=== PATIENT | male | born 1950 | race Hispanic/Latino ===

== ENCOUNTER 2017-03-13 20:39 | Emergency (ER) | payer MEDICARE ==
[2017-03-13] MEDS ORDERED: predniSONE 20 MG TAB PO ONE (20:56)
[2017-03-13] MEDS ORDERED: CETIRIZINE HCL 10 MG TAB PO ONE (20:57)
[2017-03-13] MEDS ORDERED: diphenhydrAMINE HCL 25 MG CAP PO ONE (20:57)
[2017-03-13 20:58] VITALS: TEMP 97.8
--- NOTE | 2017-03-13 21:13 | ED.PDOC ---
History of Present Illness - General Chief Complaint: Allergic Reaction Stated Complaint: itching all over, allergic reaction Time Seen by Provider: 03/13/17 20:56 Source: patient Exam Limitations: no limitations - History of Present Illness Initial Comments: the patient is a 66-year-old male presented to the emergency room secondary to what he believes to be an allergic reaction due to celery intake. the patient started having symptoms of itching around his neck and at the bottoms of his feet. He is not having difficulty breathing and no shortness of breath. No hives are apparent. No obvious rashes apparent. His blood pressure did go up somewhat during the event. No swelling of his lips or his tongue. No altered mental status. No syncope or near syncope. He has had one very significant allergic reaction in the distant past and did not want that to happen again. Timing/Duration: 1-3 hours Severity: mild Improving Factors: nothing Worsening Factors: nothing Associated Symptoms: rash Allergies/Adverse Reactions: Allergies Acetaminophen [From Phenaphen W/Codeine] Allergy (Unverified 05/14/13 19:27) Codeine [From Phenaphen W/Codeine] Allergy (Unverified 05/14/13 19:27) Penicillin G Procaine Allergy (Unverified 05/14/13 19:27) Home Medications: Ambulatory Orders Atorvastatin Calcium [Lipitor] 20 mg PO DAILY 11/19/14 Hydrochlorothiazide 25 mg PO DAILY 11/19/14 Lisinopril 20 mg PO BID 11/19/14 Metoprolol Succinate [Metoprolol Succinate ER] 25 mg PO DAILY 11/19/14 Montelukast [Singulair] 10 mg PO DAILY 11/19/14 Review of Systems - Review of Systems Constitutional: States: no symptoms reported EENTM: States: nose congestion Respiratory: States: no symptoms reported Cardiology: States: no symptoms reported Gastrointestinal/Abdominal: States: no symptoms reported Genitourinary: States: no symptoms reported Musculoskeletal: States: no symptoms reported Skin: States: no symptoms reported, see HPI - ruritus Neurological: States: anxiety Endocrine: States: no symptoms reported All other Systems: No Change from Baseline Past Medical History (General) - Patient Medical History Hx Asthma: Yes Hx Congestive Heart Failure: No Hx Hypertension: Yes Hx Diabetes: No Surgical History: other - Vaccination History Hx Tetanus, Diphtheria Vaccination: No Hx Influenza Vaccination: No Hx Pneumococcal Vaccination: No - Social History Hx Tobacco Use: No Hx Alcohol Use: No Family Medical History - Family History Father Hx Cardiac Disease: Yes Physical Exam - Physical Exam General Appearance: Alert, Comfortable, No apparent distress Eye Exam: bilateral normal Ears, Nose, Throat: hearing grossly normal, normal ENT inspection, normal pharynx Neck: full range of motion, supple Respiratory: lungs clear, normal breath sounds, no respiratory distress, no accessory muscle use Cardiovascular/Chest: normal peripheral pulses, regular rate, rhythm, no edema Peripheral Pulses: radial,right: 2+, radial,left: 2+, dorsalis pedis,right: 2+, dorsalis pedis,left: 2+ Gastrointestinal/Abdominal: non tender, soft - obese Rectal Exam: deferred Back Exam: normal inspection Extremity: normal range of motion, non-tender, normal inspection, no pedal edema , normal capillary refill 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 Reaction at this point appears to be mild. He has been given a dose of prednisone and Zyrtec and Benadryl. The patient has been monitored for reasonable amount of time and the reaction does not appear to be progressing. he can take Zyrtec daily for the next 7 days. ER warnings were given for any significant worsening. He should keep some Benadryl on hand for any future reactions. Departure - Departure Clinical Impression: Food allergy Disposition: Discharge to Home or Self Care Condition: Fair Departure Forms: ED Discharge - Pt. Copy, Patient Portal Self Enrollment Instructions: DI for Food Allergy Diet: regular diet Activity: increase activity as tolerated Referrals: Wisam Middleton MD [Primary Care Provider] - 1-2 Weeks Home Medications: Ambulatory Orders Atorvastatin Calcium [Lipitor] 20 mg PO DAILY 11/19/14 Hydrochlorothiazide 25 mg PO DAILY 11/19/14 Lisinopril 20 mg PO BID 11/19/14 Metoprolol Succinate [Metoprolol Succinate ER] 25 mg PO DAILY 11/19/14 Montelukast [Singulair] 10 mg PO DAILY 11/19/14 Additional Instructions: the patient is a 66-year-old male presenting with what appears to be an allergic reaction to food. Reaction at this point appears to be mild. He has been given a dose of prednisone and Zyrtec and Benadryl. The patient has been monitored for reasonable amount of time and the reaction does not appear to be progressing. he can take Zyrtec daily for the next 7 days. ER warnings were given for any significant worsening. He should keep some Benadryl on hand for any future reactions.
[2017-03-13 22:16] VITALS: BP 136/82; O2SAT 99
== END 2017-03-13 22:17 | disposition home or self-care (01) ==
LOC: ER 20:39
DX: T78.1XXA Other adverse food reactions, not elsewhere classified, initial encounter (principal); I10 Essential (primary) hypertension; X58.XXXA Exposure to other specified factors, initial encounter
CPT/HCPCS: J7512; Q0163

== ENCOUNTER 2018-02-22 10:34 | Emergency (ER) | payer MEDICARE ==
[2018-02-22 10:53] VITALS: TEMP 98.2
[2018-02-22] MEDS ORDERED: predniSONE 20 MG TAB PO ONE (10:54)
--- NOTE | 2018-02-22 11:26 | RAD ---
Six EXAM DESCRIPTION: KUB CLINICAL HISTORY: 67 years Male lower abd pain COMPARISON: None TECHNIQUE: A single supine view of the abdomen is obtained. FINDINGS: There is no evidence of free air. There is mild gaseous distention of small bowel loops in the central abdomen as well as a moderate amount of fecal content in the right colon and gaseous distention of the transverse colon. Small calcifications in the pelvis are most likely phleboliths. If there is a history of renal colic, distal ureteral calculi are also considerations. [] There is no organomegaly. The lung bases show no gross consolidation. [] There are no discernible acute osseous abnormalities or areas of osseous destruction/osteoblastic disease. There are degenerative changes of the spine and scattered enthesopathy. IMPRESSION: Mild ileus most likely. Partial small bowel obstruction in the differential but probably less likely. Follow-up films are recommended. ]Small calcifications in the pelvis are most likely phleboliths. If there is a history of renal colic, distal ureteral calculi are also considerations could be further evaluated with noncontrast CT abdomen and pelvis if clinically indicated. [] Electronically signed by: Silvia Caicedo MD 02/22/2018 11:24 AM [employer]
[2018-02-22 12:07] VITALS: BP 125/82; O2SAT 98
[2018-02-22] MEDS ORDERED: MAGNESIUM HYDROXIDE 30 ML UD PO ONE (12:44)
--- NOTE | 2018-02-22 12:49 | ED.PDOC ---
History of Present Illness - General Chief Complaint: Back Pain or Injury Stated Complaint: back,abdominal pain,groin pain Time Seen by Provider: 02/22/18 10:43 Source: patient Exam Limitations: no limitations - History of Present Illness Initial Comments: The patient is 67-year-old male presenting to emergency room secondary to a worsening of low back pain for last for 5 days after he twisted while doing something at home. Additionally he has been taking an increased amount of his tramadol for his neuropathy and has had some constipation issues with some mild lower abdominal pain associated with it. No fever. No large trauma. He has tenderness to palpation over the L5-S1 joint on the right. Severity: moderate Improving Factors: nothing Worsening Factors: nothing Associated Symptoms: denies symptoms Allergies/Adverse Reactions: Allergies Acetaminophen [From Phenaphen W/Codeine] Allergy (Unverified 05/14/13 19:27) Codeine [From Phenaphen W/Codeine] Allergy (Unverified 05/14/13 19:27) Penicillin G Procaine Allergy (Unverified 05/14/13 19:27) Home Medications: Ambulatory Orders Atorvastatin Calcium [Lipitor] 20 mg PO DAILY 11/19/14 Hydrochlorothiazide 25 mg PO DAILY 11/19/14 Lisinopril 20 mg PO BID 11/19/14 Metoprolol Succinate [Metoprolol Succinate ER] 25 mg PO DAILY 11/19/14 Montelukast [Singulair] 10 mg PO DAILY 11/19/14 Cyclobenzaprine HCl [Flexeril] 10 mg PO TID PRN 02/22/18 Tamsulosin [Flomax] 0.4 mg PO QD 02/22/18 predniSONE [Prednisone] 20 mg PO DAILY #3 tab 02/22/18 traMADol 37.5MG/APAP 325MG [Ultracet] 1 - 2 tab PO PRN 02/22/18 Review of Systems - Review of Systems Constitutional: States: no symptoms reported EENTM: States: no symptoms reported Respiratory: States: no symptoms reported Cardiology: States: no symptoms reported Gastrointestinal/Abdominal: States: abdominal pain, constipation Genitourinary: States: no symptoms reported Musculoskeletal: States: back pain Skin: States: no symptoms reported Neurological: States: no symptoms reported Endocrine: States: no symptoms reported All other Systems: No Change from Baseline Past Medical History (General) - Patient Medical History Hx Stroke: No Hx Asthma: Yes Hx Congestive Heart Failure: No Hx Hypertension: Yes Hx Diabetes: No - Vaccination History Hx Tetanus, Diphtheria Vaccination: No Hx Influenza Vaccination: No Hx Pneumococcal Vaccination: No - Social History Hx Tobacco Use: Yes Hx Alcohol Use: No Family Medical History - Family History Father Family History: Unknown Living Status: Unknown Hx Cardiac Disease: Yes Physical Exam - Physical Exam General Appearance: Alert, Comfortable, No apparent distress Eye Exam: bilateral normal Ears, Nose, Throat: hearing grossly normal, normal ENT inspection Neck: full range of motion, supple Respiratory: lungs clear, normal breath sounds, no respiratory distress, no accessory muscle use Cardiovascular/Chest: normal peripheral pulses, regular rate, rhythm, no edema Peripheral Pulses: radial,left: 2+ Gastrointestinal/Abdominal: non tender - obese. No rebound or peritoneal signs., soft Rectal Exam: deferred Back Exam: other - tenderness to palpation over the right L5-S1 joint. No gross deformity. 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 He'll be placed on prednisone 20 mg daily for the next 3 days. He can continue the Flexeril he is already using. Topical heat in the form of icy hot or Biofreeze or a heat pad may also prove beneficial. He does need to do stretching exercises for the low back. Additionally he does have some significant constipation that is likely causing him some abdominal discomfort. He can continue the laxative that he was given by his primary care doctor. I would also recommend that he start a fiber supplement daily such as Metamucil or FiberCon and if needed MiraLAX daily additionally. He needs to follow back up with his primary care doctor in a few days for reevaluation. Urinalysis was clear. ER warnings were given. - Results/Orders Results/Orders: Laboratory Tests 02/22/18 11:42 Urine Color Yellow Urine Appearance Clear Urine pH 6.0 Ur Specific [place] 1.020 Urine Protein Negative Urine Glucose (UA) Negative Urine Ketones Negative Urine Blood Negative Urine Nitrite Negative Urine Bilirubin Negative Urine Urobilinogen 0.2 Ur Leukocyte Esterase Negative Urine RBC 0 Urine WBC 0 Ur Epithelial Cells 0 Urine Bacteria 0 abdominal x-ray is significant for stones in the kidney and bladder. He does still have significant constipation. There is some mild small bowel distention that could be consistent with a small bowel obstruction however clinically the patient does not have a small bowel obstruction. Departure - Departure Clinical Impression: Constipation Qualifiers: Constipation type: drug induced constipation Qualified Code(s): K59.03 - Drug induced constipation Low back pain Qualifiers: Chronicity: acute Back pain laterality: right Sciatica presence: without sciatica Qualified Code(s): M54.5 - Low back pain Disposition: Discharge to Home or Self Care Condition: Fair Departure Forms: ED Discharge - Pt. Copy, Patient Portal Self Enrollment Diet: regular diet - high-fiber Activity: increase activity as tolerated Referrals: Wisam Middleton MD [Primary Care Provider] - 1-5 Days Prescriptions: predniSONE [Prednisone] 20 mg PO DAILY #3 tab Home Medications: Ambulatory Orders Atorvastatin Calcium [Lipitor] 20 mg PO DAILY 11/19/14 Hydrochlorothiazide 25 mg PO DAILY 11/19/14 Lisinopril 20 mg PO BID 11/19/14 Metoprolol Succinate [Metoprolol Succinate ER] 25 mg PO DAILY 11/19/14 Montelukast [Singulair] 10 mg PO DAILY 11/19/14 Cyclobenzaprine HCl [Flexeril] 10 mg PO TID PRN 02/22/18 Tamsulosin [Flomax] 0.4 mg PO QD 02/22/18 predniSONE [Prednisone] 20 mg PO DAILY #3 tab 02/22/18 traMADol 37.5MG/APAP 325MG [Ultracet] 1 - 2 tab PO PRN 02/22/18 Additional Instructions: the patient is 67-year-old male presented to the emergency room with right-sided low back 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 He'll be placed on prednisone 20 mg daily for the next 3 days. He can continue the Flexeril he is already using. Topical heat in the form of icy hot or Biofreeze or a heat pad may also prove beneficial. He does need to do stretching exercises for the low back. Additionally he does have some significant constipation that is likely causing him some abdominal discomfort. He can continue the laxative that he was given by his primary care doctor. I would also recommend that he start a fiber supplement daily such as Metamucil or FiberCon and if needed MiraLAX daily additionally. He needs to follow back up with his primary care doctor in a few days for reevaluation. Urinalysis was clear. the patient may also benefit from a visit to a chiropractor for his low back discomfort as well. ER warnings were given.
== END 2018-02-22 13:17 | disposition home or self-care (01) ==
LOC: ER 10:34
DX: M54.5 Low back pain (principal); K59.03 Drug induced constipation; J45.909 Unspecified asthma, uncomplicated; I10 Essential (primary) hypertension; Z79.899 Other long term (current) drug therapy; Z88.5 Allergy status to narcotic agent; Z88.6 Allergy status to analgesic agent; Z88.0 Allergy status to penicillin
CPT/HCPCS: 74018; 81001; J7512

== ENCOUNTER → 2018-03-03 | Outpatient (CLI) | payer MEDICARE ==
--- NOTE | 2018-03-03 13:58 | MRI ---
EXAM DESCRIPTION: Lumbar Spine w/o Contrast : Magnetic Resonance Imaging. CLINICAL HISTORY: LOW BACK PAIN COMPARISON: None. TECHNIQUE: Multiplanar, multiple standard sequences, non contrast MRI, lumbar spine. FINDINGS: L5-S1: Disc desiccation and minimal disc space loss posteriorly. Posterior midline focal disc bulge containing bright T2-weighted signal indicating an annular fissure. This is almost abutting the descending bilateral S1 nerve roots. AP canal diameter 10 mm. Bilaterally shortened pedicles. Bilateral facet effusions and minimal flavum ligament hypertrophy. Moderate to advanced narrowing right foramen with moderate narrowing of the left foramen. L4-5: Disc space maintained with normal signal in the disc. Posterior bilateral facet arthrosis and flavum ligament hypertrophy. Moderate narrowing of the transverse diameter. Bilateral shortened pedicles. Moderate right foraminal narrowing and borderline left foraminal stenosis. L3-4: Normal signal in the disc with disc space preserved. Flavum ligament hypertrophy and bilateral facet arthrosis. Moderate narrowing of the AP and transverse diameter of the canal. Bilateral shortened pedicles. Mild narrowing of the left foramen moderate narrowing of the right foramen. L2-3: Disc desiccation and minimal disc space loss. Anterior disc bulge. Flavum ligament hypertrophy and bilateral facet arthrosis. Moderate narrowing of the AP and transverse diameter of the canal. Bilateral shortened pedicles. Mild narrowing of the bilateral foramina. L1-2: Anterior disc desiccation and minimal bulging. Anterior disc space narrowing. Mild flavum ligament hypertrophy and facet arthrosis. Mild narrowing of the canal. Bilateral foramina are patent. T12-L1: Minimal disc desiccation with disc space preserved. No bulging. Posterior elements unremarkable. Canal and foramina are patent. Conus terminates at this level. Minimal kyphosis of the upper lumbar spine. Paravertebral soft tissues no large cystic structure partially visualized abutting the inferior medial right kidney.. Normal marrow signal in the remaining vertebral bodies and the posterior elements. Vertebral bodies are not compressed at any level. IMPRESSION: 1. 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 Multiple levels also of facet arthrosis and flavum ligament hypertrophy contributing to canal narrowing. 2. L5-S1 posterior midline annular fissure with borderline mild central canal stenosis which is multifactorial. Moderate to advanced narrowing of the right foramen. Correlate for right L5 radiculopathy. 3. Moderate narrowing versus borderline stenosis of the L4-5 canal. Borderline left foraminal stenosis. Correlate for left L4 radiculopathy. 4. Moderate narrowing of the canal at L3-4 and L2-3 which is multifactorial. Electronically signed by: Mark Ulloa MD 03/03/2018 1:56 PM [facility]
== END ==
LOC: MRI 08:36
PROVIDERS: ATTEND General Practice
DX: M48.07 Spinal stenosis, lumbosacral region (principal); M51.87 Other intervertebral disc disorders, lumbosacral region

== ENCOUNTER → 2018-08-12 | Outpatient (CLI) | payer MEDICARE | LOC: CT 08:55 | PROVIDERS: ATTEND General Practice | DX: S36.428A Contusion of other part of small intestine, initial encounter (principal) ==

== ENCOUNTER → 2018-09-27 | Outpatient (CLI) | payer MEDICARE ==
--- NOTE | 2018-09-27 16:13 | CT ---
EXAM DESCRIPTION: Abdomen w/wo Contrast: Computed Tomography. CLINICAL HISTORY: MESENTERIC HEMATOMA COMPARISON: CT scan of the abdomen and pelvis without and with IV contrast 08/12/2018. TECHNIQUE: Spiral-axial scans at 5 x 5 mm intervals, from the diaphragms through the upper pelvis, before and after nonionic IV contrast. No oral contrast. Coronal and sagittal 2.0 mm reconstructions. 5 minute Delayed scans, 5 x 5 mm increments, liver through the upper pelvis. No adverse reactions. DLP 2500.72 mGy-cm. This exam was performed according to our departmental CT dose-optimization program which includes automated exposure control, adjustment of the mA and/or kV according to patient size and/or use of iterative reconstruction technique; to reduce radiation dose to as low as reasonably achievable (ALARA). FINDINGS: Mesentery: The hematoma previously described is only partially imaged and measures 8 x 4.2 cm in the axial plane. The superior 7 cm are also imaged. With uniform enhancement and uniform density before contrast. Branches of the superior mesenteric artery and vein are seen within the mass. The mass is predominantly in the midline anterior to the lumbosacral spine and the right SI joint. No free fluid or free air. A loop of small bowel is visualized abutting the inferior posterior aspect of the hematoma/mass. Small Bowel: No obstruction. Partially visualized. Terminal Ileum/Cecum: Normal caliber. Appendix not seen. Thickening of the fascia from the right paracolic gutter to the hematoma. Colon: Redundancy of the splenic and hepatic flexure. Decompressed mid colon splenic flexure and descending colon. Lung bases and pleura: Negative. Liver, stomach, adrenal glands, and spleen: Unremarkable. Pancreas/Gallbladder/Ducts: Negative. Kidneys and Ureters: Stable 6 cm cyst upper pole right kidney. Stable bilateral pararenal stranding. Stable small left kidney compared to right kidney. Included ureters normal size and caliber. Aorta: Minimal atherosclerotic calcifications, not dilated. Spine: Spondylosis included thoracic spine. Minimal foraminal narrowing bilaterally L5-S1. Decreased bone density in the pelvis. Abdominal Wall/Back Soft Tissues: Minimal diastases of the umbilicus but not containing bowel. IMPRESSION: Stable hematoma only partially visualized on this CT scan of the abdomen and upper pelvis. Inferior mass not seen. Smooth borders with homogeneous density and post contrast enhancement. Encasing vessels. No free air or fluid. No small bowel obstruction. No free fluid or contrast extravasation. Consider surgical consult. Electronically signed by: Mark Ulloa MD 09/27/2018 4:12 PM CDT
== END ==
LOC: CT 09:32
PROVIDERS: ATTEND Nurse Practitioner Family
DX: S36.89 Injury of other intra-abdominal organs (principal); S30.1XXD Contusion of abdominal wall, subsequent encounter

== ENCOUNTER → 2019-02-09 | Outpatient (CLI) | payer MEDICARE ==
--- NOTE | 2019-02-09 13:59 | CT ---
EXAM DESCRIPTION: Abdomen/Pelvis w/wo Contrast CLINICAL HISTORY: 68 years Male, TRAUMATIC HEMATOMA TECHNIQUE: This exam was performed according to our departmental dose-optimization program, which includes automated exposure control, adjustment of the mA and/or kV according to patient size and/or use of iterative reconstruction technique. COMPARISON: September 11, 2018, September 27, 2018 FINDINGS: Visualized lung bases are grossly unremarkable. Hepatic steatosis. No suspicious hepatic lesion. No biliary dilatation. The portal vein is patent. The gallbladder is unremarkable. The spleen measures 11 cm. The pancreas and adrenal glands are unremarkable. Right renal cyst. Symmetric renal parenchymal enhancement. No hydronephrosis. No urolithiasis. No urothelial lesion identified. The bladder is decompressed. Scattered colonic diverticula without focal inflammatory change. No evidence of bowel obstruction. Normal appendix. No fluid collection. No retroperitoneal or pelvic adenopathy. No free air. Similar central mesenteric mass which encases the branches of the superior mesenteric artery and vein. This mass appears associated with segment of small bowel on all three examinations. This mass measures 9.6 x 5.0 cm. The segment of small bowel with which this mass is associated demonstrates mural thickening although no evidence of upstream obstruction. Normal caliber abdominal aorta. Mild atherosclerotic disease. No acute or suspicious osseous abnormality. IMPRESSION: 1. 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 A mesenteric hematoma is possible, however given its persistence over time other etiologies should be considered to include lymphoma. Electronically signed by: Cleveland Nicholas MD 02/09/2019 1:57 PM [employer] MA[employer]GER
== END ==
LOC: CT 07:56
PROVIDERS: ATTEND General Practice
DX: K66.1 Hemoperitoneum (principal); R19.09 Other intra-abdominal and pelvic swelling, mass and lump

== ENCOUNTER 2019-02-17 16:51 | Emergency (ER) | payer MEDICARE ==
[2019-02-17 17:22] VITALS: O2SAT 95
--- NOTE | 2019-02-17 18:06 | ED.PDOC ---
History of Present Illness - General Chief Complaint: Abdominal Pain Stated Complaint: abdominal pain Time Seen by Provider: 02/17/19 17:06 Information Source: patient, RN notes reviewed, Vital Signs reviewed Exam Limitations: no limitations - History of Present Illness Initial Comments: Patient presents for evaluation of abdominal pain. He states that the pain is in his lower abdomen and wraps to his back. He does endorse this pain being intermittent over the past few months. During this time span, he has had early satiety. He denies any weight loss or night sweats. Patient denies previous hx of malignancy. Outpatient imaging on 02/09/19 showed findings concerning for intra-abdominal mass. Pt denies fevers, chills, nausea, vomiting, constipation, diarrhea, dysuria, hematuria, or urinary frequency. He otherwise denies any complaints. Abdominal Pain Onset Location: periumbilical Pain Radiation: flank Quality: moderate Timing/Duration: 1 week Worsening Factors: nothing Review of Systems - Review of Systems Constitutional: Denies: chills, fever EENTM: Denies: nose congestion Respiratory: Denies: cough, short of breath Cardiology: Denies: chest pain Gastrointestinal/Abdominal: States: abdominal pain. Denies: constipation, diarrhea, vomiting Genitourinary: Denies: dysuria Musculoskeletal: Denies: back pain Neurological: Denies: weakness Endocrine: Denies: unexplained weight loss Past Medical History (General) - Patient Medical History Hx Stroke: No Hx Asthma: Yes Hx Congestive Heart Failure: No Hx Hypertension: Yes Hx Diabetes: No - Vaccination History Hx Tetanus, Diphtheria Vaccination: No Hx Influenza Vaccination: No Hx Pneumococcal Vaccination: No - Social History Hx Tobacco Use: Yes Hx Alcohol Use: No Family Medical History - Family History Father Family History: Unknown Living Status: Unknown Hx Cardiac Disease: Yes Physical Exam - Physical Exam General Appearance: Alert, Comfortable, No apparent distress Neck: full range of motion, supple, normal inspection Respiratory: lungs clear, normal breath sounds, no respiratory distress, no accessory muscle use Cardiovascular/Chest: normal peripheral pulses, regular rate, rhythm, no edema, no gallop Peripheral Pulses: 2+ Gastrointestinal/Abdominal: normal bowel sounds, non tender, soft, no organomegaly Rectal Exam: deferred Extremity: no pedal edema Neurologic: alert, normal mood/affect, oriented x 3 Skin Exam: warm/dry Special Observations: Smiling, Tolerates fluids, Tolerates PO Progress - Progress Progress: DDx: Colitis, UTI, Appendicitis, Lymphoma, Electrolyte derangement, Dehydration, gastroenteritis, GERD, Gastritis, diverticulitis Patient presented for evaluation of abdominal pain. Abdomen was soft and non- tender. There was no fever, nausea, vomiting or constipation. CBC was not significant for leukocytosis. There was no hepatic or biliary derangement on CMP. There was no signs of UTI or hematuria to suggest renal stone. Given normal exam with reassuring lab work, repeat imaging was not obtained as imaging was on the of this month. I discussed and re-emphasized the importance of outpatient follow-up for biopsy of this mass to rule out malignancy. Patient stated that he understood and will call his PCP in the morning. Patient will be discharged home with plans for outpatient follow-up. 02/17/19 18:32 Patient updated on normal lab work. No leukocytosis. No signs of UTI. No hematuria to suggest renal stone. No focal abdominal tenderness. Given recent imaging, no fever, and tolerating PO; will plan to withhold imaging at this time. Will plan for follow-up with PCP for possible biopsy. - Results/Orders Results/Orders: Reporting MD: Cleveland Nicholas Hr Operations Advisor date: Dictation date: EXAM DESCRIPTION: Abdomen/Pelvis w/wo Contrast CLINICAL HISTORY: 68 years Male, TRAUMATIC HEMATOMA TECHNIQUE: This exam was performed according to our departmental dose-optimization program, which includes automated exposure control, adjustment of the mA and/or kV according to patient size and/or use of iterative reconstruction technique. COMPARISON: September 11, 2018, September 27, 2018 FINDINGS: Visualized lung bases are grossly unremarkable. Hepatic steatosis. No suspicious hepatic lesion. No biliary dilatation. The portal vein is patent. The gallbladder is unremarkable. The spleen measures 11 cm. The pancreas and adrenal glands are unremarkable. Right renal cyst. Symmetric renal parenchymal enhancement. No hydronephrosis. No urolithiasis. No urothelial lesion identified. The bladder is decompressed. Scattered colonic diverticula without focal inflammatory change. No evidence of bowel obstruction. Normal appendix. No fluid collection. No retroperitoneal or pelvic adenopathy. No free air. Similar central mesenteric mass which encases the branches of the superior mesenteric artery and vein. This mass appears associated with segment of small bowel on all three examinations. This mass measures 9.6 x 5.0 cm. The segment of small bowel with which this mass is associated demonstrates mural thickening although no evidence of upstream obstruction. Normal caliber abdominal aorta. Mild atherosclerotic disease. No acute or suspicious osseous abnormality. IMPRESSION: 1. 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 A mesenteric hematoma is possible, however given its persistence over time other etiologies should be considered to include lymphoma. Electronically signed by: Cleveland Nicholas MD 02/09/2019 1:57 PM [employer] Laboratory Results - last 24 hr 02/17/19 02/17/19 02/17/19 17:51 17:51 17:51 WBC 7.7 RBC 5.56 Hgb 15.2 Hct 45.6 MCV 82.0 MCH 27.4 MCHC 33.4 RDW 14.3 Plt Count 192 MPV 8.4 Absolute Neuts (auto) 5.00 Absolute Lymphs (auto) 1.70 Absolute Monos (auto) 0.70 Absolute Eos (auto) 0.30 Absolute Basos (auto) 0.10 Neutrophils % 65.0 Lymphocytes % 22.2 Monocytes % 8.5 Eosinophils % 3.5 Basophils % 0.8 Sodium 136 Potassium 3.8 Chloride 100 L Carbon Dioxide 27 Anion Gap 12.8 BUN 16 Creatinine 0.90 BUN/Creatinine Ratio 17.8 Random Glucose 104 Serum Osmolality 273.5 L Lactic Acid 1.2 Calcium 9.2 Total Bilirubin 0.9 AST 21 ALT 17 Alkaline Phosphatase 82 Serum Total Protein 6.8 Albumin 3.9 Globulin 2.9 Albumin/Globulin Ratio 1.3 Lipase 26 Urine Color Urine Appearance Urine pH Ur Specific [place] Urine Protein Urine Glucose (UA) Urine Ketones Urine Blood Urine Nitrite Urine Bilirubin Urine Urobilinogen Ur Leukocyte Esterase Urine RBC Urine WBC Ur Epithelial Cells Urine Bacteria 02/17/19 18:14 WBC RBC Hgb Hct MCV MCH MCHC RDW Plt Count MPV Absolute Neuts (auto) Absolute Lymphs (auto) Absolute Monos (auto) Absolute Eos (auto) Absolute Basos (auto) Neutrophils % Lymphocytes % Monocytes % Eosinophils % Basophils % Sodium Potassium Chloride Carbon Dioxide Anion Gap BUN Creatinine BUN/Creatinine Ratio Random Glucose Serum Osmolality Lactic Acid Calcium Total Bilirubin AST ALT Alkaline Phosphatase Serum Total Protein Albumin Globulin Albumin/Globulin Ratio Lipase Urine Color Yellow Urine Appearance Clear Urine pH 7.0 Ur Specific [place] 1.015 Urine Protein Negative Urine Glucose (UA) Negative Urine Ketones Negative Urine Blood Negative Urine Nitrite Negative Urine Bilirubin Negative Urine Urobilinogen 0.2 Ur Leukocyte Esterase Negative Urine RBC 0-1 Urine WBC 0 Ur Epithelial Cells 0 Urine Bacteria 0 Departure - Departure Clinical Impression: Intraabdominal mass Abdominal pain Qualifiers: Abdominal location: periumbilical Qualified Code(s): R10.33 - Periumbilical pain Time of Disposition: 18:33 Disposition: Discharge to Home or Self Care Condition: Good Departure Forms: ED Discharge - Pt. Copy, Patient Portal Self Enrollment Instructions: DI for Abdominal Pain-Adult Diet: resume usual diet Activity: increase activity as tolerated Referrals: Wisam Middleton MD [Primary Care Provider] - 1-2 Days Home Medications: Ambulatory Orders Atorvastatin Calcium [Lipitor] 20 mg PO DAILY 11/19/14 Hydrochlorothiazide 25 mg PO DAILY 11/19/14 Lisinopril 20 mg PO BID 11/19/14 Metoprolol Succinate [Metoprolol Succinate ER] 25 mg PO DAILY 11/19/14 Montelukast [Singulair] 10 mg PO DAILY 11/19/14 Cyclobenzaprine HCl [Flexeril] 10 mg PO TID PRN 02/22/18 Tamsulosin [Flomax] 0.4 mg PO QD 02/22/18 predniSONE [Prednisone] 20 mg PO DAILY #3 tab 02/22/18 traMADol 37.5MG/APAP 325MG [Ultracet] 1 - 2 tab PO PRN 02/22/18 Comments: Oliva Lester #[id number]
[2019-02-17 19:03] VITALS: BP 132/82; TEMP 97.9
== END 2019-02-17 19:03 | disposition home or self-care (01) ==
LOC: ER 16:51
DX: R10.33 Periumbilical pain (principal); R19.09 Other intra-abdominal and pelvic swelling, mass and lump; J45.909 Unspecified asthma, uncomplicated; I10 Essential (primary) hypertension; Z87.891 Personal history of nicotine dependence; Z79.899 Other long term (current) drug therapy

== ENCOUNTER 2019-03-24 05:44 | Day surgery (SDC) | payer MEDICARE, OTHER ==
--- NOTE | 2019-03-22 11:01 | RAD ---
Study: Frontal and Lateral Radiographs of the Chest. Indication: PRE OP Comparison: None. Impression: Cardiomegaly without failure. Lungs clear. Degenerative changes of the spine noted. Electronically signed by: Marty Waldron MD 03/22/2019 10:59 AM [facility]
[2019-03-24] MEDS ORDERED: BUPIVACAINE 0.5% W/EPI 30 ML VIAL INJ ONE ×2 (09:17→10:35)
[2019-03-24] MEDS: LACTATED RINGERS 0 ML ONE ×2 (09:20→11:49)
[2019-03-24] MEDS ORDERED: LACTATED RINGERS 1,000 ML ONE (09:29)
[2019-03-24] MEDS ORDERED: PROPOFOL 200 MG/20 ML VIAL IV ONE (10:00)
[2019-03-24] MEDS ORDERED: LIDOCAINE 1% 10 ML VIAL INJ ONE (10:00)
[2019-03-24] MEDS ORDERED: DEXAMETHASONE INJ 10 MG/ML VIAL IV ONE (10:00)
[2019-03-24] MEDS ORDERED: raNITIdine HCL INJ 25 MG/ML VIAL IV ONE (10:00)
[2019-03-24] MEDS ORDERED: SODIUM CHLORIDE 0.9% 50 ML VIAL INJ ONE (10:00)
[2019-03-24] MEDS ORDERED: DEXMEDETOMIDINE HCL 200 MCG/2 ML INJ IV ONE (10:16)
[2019-03-24] MEDS ORDERED: KETAMINE HCL 100 MG/ML VIAL ONE (10:17)
[2019-03-24] MEDS ORDERED: ROCURONIUM BROMIDE 10 MG/ML VIAL ONE ×2 (10:17→10:53)
[2019-03-24] MEDS ORDERED: MIDAZOLAM INJ 2 MG/2 ML VIAL ONE (10:17)
[2019-03-24] MEDS ORDERED: fentaNYL CITRATE INJ 50 MCG/ML AMP ONE (10:17)
[2019-03-24] MEDS ORDERED: ACETAMINOPHEN IV 1000MG 100 ML ONE (10:53)
[2019-03-24] MEDS ORDERED: SUGAMMADEX SODIUM 200 MG/2 ML VIAL IV ONE (10:53)
[2019-03-24] MEDS: HYDROmorphone HCL INJ 2 MG/ML VIAL ONE ×2 (12:10→12:25)
--- NOTE | 2019-03-24 13:21 | OP ---
DATE OF PROCEDURE: 03/24/19 PREOPERATIVE DIAGNOSIS: 1. Mesenteric mass. POSTOPERATIVE DIAGNOSIS: 1. Mesenteric mass. PROCEDURE: 1. Laparoscopic biopsy of the mesentery times 2. SURGEON: Moe Davis MD. ANESTHESIA: General and local. FINDINGS: The mass was identified in the mid distal mesentery with no evidence of external type malignancy. The peritoneal surfaces, liver surfaces, other bowel surfaces, etc., were normal. The mesenteric fat appeared thickened, slightly swollen. The mass itself was not firm. It was thickened, but relatively soft with low suspicion for malignancy at this point. See the report. COMPLICATIONS: None. ESTIMATED BLOOD LOSS: Minimal. SPECIMEN: Mesenteric biopsy times 2. PLAN: Discharge. INDICATION: This is a 68-year-old man who about a year ago had a CAT scan for abdominal pain, suspected trauma and what was thought to be a hematoma in his mesentery. A year later now this has persisted, similar size, but difficult to characterize, so evaluation is requested. We consented him for laparoscopic versus open biopsy of mesentery without the plan of excision at this time so we could get tissue diagnosis of course ruling out a possible lymphoma versus old hematoma, scar, mesenteritis, etc. PROCEDURE: General anesthesia was induced. He was prepped and draped in sterile fashion. 0.5% Marcaine with epinephrine was used at the incision sites. While maintaining upward traction, a cut was made superior to the umbilicus because he had had an umbilical hernia repair with mesh. Veress needle was introduced without difficulty. The abdominal cavity was insufflated without difficulty. The 5 mm trocar was placed. There was no evidence of bleeding or bowel injury. I looked inferior at the umbilicus. The mesh was not visible, completely incorporated and seemed to be doing its job nicely. We then placed three lateral ports and turned the camera up the to the left upper quadrant so we be in proper orientation to begin our examination. The peritoneal surfaces appeared normal. There was normal dilation of the mid small bowel without any evidence of transition points. We ran the bowel and did not see any evidence of malignancy. When we examined the mesentery, the proximal mesentery was all soft and normal appearing. In the distal third area of the mesentery is where we saw the thickness and bulkiness. It was palpable with the instruments and measures approximately 10 cm by 5 to 6 cm. In examining it, no part was particularly more firm than the other. There was definitely fullness and mass-like, but not particularly hard. The mesenteric surface of the bowel edge showed thickened mesentery with some deep grooves consistent with probable inflammation. Also, there was no significant exudate that was not red and pictures were taken. We chose an area in the center of it which we thought might represent best the character of the mass and scored the surface of the mesentery removing a portion of this and sending it for pathology. This was probably 6 to 7 mm thick and then below that was fatty tissue although a little bit more whitish chen than normal and could represent lymphoma. Employee Relations Director pieces were taken, however, it was still friable and I am not certain what it is at this point. We were careful not to get into any bleeding and we did not. I even extended it just a little bit just to make sure we had a good representation and at this point I do not feel taking any different part of the mass or more tissue from the mass will be any more revealing. Once we had good hemostasis ensured, I examined the bowels a little more and did not find any other positive findings. The trocars were removed. The abdomen was desufflated, wounds closed with Monocryl and dressing applied. He was awakened and taken to Recovery to be discharged. #[id number] [facility]
[2019-03-24 13:48] VITALS: O2SAT 94
[2019-03-24 15:34] VITALS: BP 143/90; TEMP 97.9
== END 2019-03-24 15:20 | disposition home or self-care (01) ==
LOC: AMB 05:44
PROVIDERS: ATTEND Surgery
DX: C85.93 Non-Hodgkin lymphoma, unspecified, intra-abdominal lymph nodes (principal); I10 Essential (primary) hypertension; J45.909 Unspecified asthma, uncomplicated; E78.00 Pure hypercholesterolemia, unspecified; N40.0 Benign prostatic hyperplasia without lower urinary tract symptoms; Z88.0 Allergy status to penicillin; Z88.5 Allergy status to narcotic agent; Z79.899 Other long term (current) drug therapy
CPT/HCPCS: 00840; 36415; 49321; 71046; 80048; 85014; 85018; 88305; 88341; 88342; 88360; A4216; J1100; J1170; J2250; J2780; J3010; J3490; J7120

== ENCOUNTER 2019-03-25 08:22 | Emergency (ER) | payer MEDICARE ==
[2019-03-25] MEDS: SODIUM CHLORIDE 0.9% (FLUSH) 10 ML SYG IV PRN (08:38)
[2019-03-25] MEDS: DEXAMETHASONE INJ 10 MG/ML VIAL IV ONE (08:38)
[2019-03-25] MEDS: diphenhydrAMINE HCL 50 MG/ML VIAL IV ONE (08:38)
[2019-03-25] MEDS: SODIUM CHLORIDE 0.9% 1000ML 1,000 ML IVS ONE (08:39)
--- NOTE | 2019-03-25 08:40 | ED.PDOC ---
History of Present Illness - General Chief Complaint: Allergic Reaction Stated Complaint: Feels like his throat is closing up Time Seen by Provider: 03/25/19 08:32 Source: patient - History of Present Illness Initial Comments: 68 yo male who presents with cc of throat swelling and tightness. Sudden/rapid onset approx 15 mins ago at home. Reports had eaten some powdered donuts and was drinking coffee and speaking on the phone when he felt his throat become tight, rapidly worsened over a couple minutes, was worried his throat was closing, began having difficulty swallowing and slight trouble talking. Had his bring him to the ED. Moderate severity, constant, unchanged, no meds tried for relief at home. Denies any chest pain, dyspnea, wheezing, sore throat, hoarse voice, fevers/chills, neck pain/stiffness. Reports he had laparoscopic procedure here yesterday by Dr. Barber with biopsy of a small intestinal mass. Denies any issues with the surgery or anesthesia. Reports he was having significant heartburn last night, which was unusual for him. Reports hx of numerous food and drug allergies and has had hx of severe allergic reactions in the past from foods. Allergies/Adverse Reactions: Allergies Acetaminophen [From Phenaphen W/Codeine] Allergy (Verified 03/25/19 08:32) Codeine [From Phenaphen W/Codeine] Allergy (Verified 03/25/19 08:32) Penicillins Allergy (Verified 03/25/19 08:32) Home Medications: Ambulatory Orders Atorvastatin Calcium [Lipitor] 20 mg PO DAILY 11/19/14 Metoprolol Succinate [Metoprolol Succinate ER] 25 mg PO DAILY 11/19/14 Montelukast [Singulair] 10 mg PO DAILY 11/19/14 RX: Hydrochlorothiazide 25 mg PO DAILY 11/19/14 RX: Lisinopril 20 mg PO BID 11/19/14 Tamsulosin [Flomax] 0.4 mg PO QD 02/22/18 traMADol 37.5MG/APAP 325MG [Ultracet] 1 - 2 tab PO PRN 02/22/18 Review of Systems - Review of Systems Review of Systems: 03/25/19 08:40 as per HPI All other Systems: Reviewed and Negative Past Medical History (General) - Patient Medical History Hx Stroke: No Hx Asthma: Yes Hx Congestive Heart Failure: Yes - 30YRS AGO DR KAUFFMAN Hx Hypertension: Yes Hx Diabetes: No Hx MRSA: No - Vaccination History Hx Tetanus, Diphtheria Vaccination: No Hx Influenza Vaccination: No Hx Pneumococcal Vaccination: No - Social History Hx Tobacco Use: Yes Hx Alcohol Use: No Family Medical History - Family History Father Family History: Unknown Living Status: Unknown Hx Cardiac Disease: Yes Physical Exam - Physical Exam General Appearance: Alert, Anxious Eye Exam: bilateral normal Ears, Nose, Throat: hearing grossly normal, pharyngeal erythema - moderate erythema to posterior OP & tonsils without any tonsillar/tongue/mouth swelling. Small white plaque to posterior OP Neck: non-tender, full range of motion, supple, normal inspection Respiratory: chest non-tender, lungs clear, normal breath sounds, no respiratory distress Cardiovascular/Chest: normal peripheral pulses, regular rate, rhythm, no edema, no murmur Peripheral Pulses: radial,right: 2+, radial,left: 2+ Gastrointestinal/Abdominal: non tender, soft Back Exam: normal inspection Extremity: normal range of motion, non-tender, normal inspection, no pedal edema, other - s/p traumatic RUE amputation Neurologic: sales development associate II-XII nml as tested, no motor/sensory deficits, alert, normal mood/affect, oriented x 3 Skin Exam: normal color, warm/dry Progress - Progress Progress: 03/25/19 08:42 Throat tightness -consider allergic rxn most likely vs GERD vs anxiety vs strep vs other -no swelling noted on exam, pt anxious but vitals stable, moving air well -stat Benadryl 50 mg IV, Decadron 10 mg IV given on arrival -monitor closely, consider epi IM if sx's persist or worsen. Also consider rapid intubation if swelling or respiratory distress occurs -EKG, CXR, strep, labs 03/25/19 10:15 -Pt now clarifies it is not his entire throat that feels swollen, just his uvula. It appears he was intubated and had general anesthesia for his procedure yesterday. I suspect he likely had snoring last night, along with the mechanical irritation from being intubated and GERD which has likely caused some inflammation and irritation of his uvula which is moderately enlarged and inflamed. He does have mild leukocytosis without left shift which could possibly indicate viral pharyngitis. His strep testing is negative. Remainder of labs unremarkable. -discussed with pt as well as expected course and continued home care. ED return warnings addressed. Dc home in good condition. Chau Azar MD Billing #[id number] 03/25/19 08:33 IV Care:Saline Lock per Protoc QSHIFT Telemetry .ONCE 03/25/19 08:45 EKG STAT 03/25/19 08:48 STREP A SCREEN CULTURE Stat 03/25/19 09:00 Pulse Ox Daily Laboratory Results - last 24 hr 03/25/19 03/25/19 03/25/19 08:30 08:30 08:30 WBC 12.9 H RBC 5.70 Hgb 15.7 Hct 46.7 MCV 81.9 MCH 27.5 MCHC 33.5 RDW 14.2 Plt Count 216 MPV 8.1 Absolute Neuts (auto) 9.80 H Absolute Lymphs (auto) 1.90 Absolute Monos (auto) 1.10 H Absolute Eos (auto) 0.00 Absolute Basos (auto) 0.10 Neutrophils % 76.1 Lymphocytes % 14.8 L Monocytes % 8.3 Eosinophils % 0.0 L Basophils % 0.8 Sodium 138 Potassium 3.3 L Chloride 102 Carbon Dioxide 24 Anion Gap 15.3 BUN 15 Creatinine 1.12 BUN/Creatinine Ratio 13.4 Random Glucose 169 H D Serum Osmolality 280.4 Calcium 9.2 Total Bilirubin 1.4 H AST 24 ALT 19 Alkaline Phosphatase 91 Troponin I < 0.02 B-Natriuretic Peptide 12.3 Serum Total Protein 7.3 Albumin 4.2 Globulin 3.1 Albumin/Globulin Ratio 1.4 Group A Strep Rapid 03/25/19 08:48 WBC RBC Hgb Hct MCV MCH MCHC RDW Plt Count MPV Absolute Neuts (auto) Absolute Lymphs (auto) Absolute Monos (auto) Absolute Eos (auto) Absolute Basos (auto) Neutrophils % Lymphocytes % Monocytes % Eosinophils % Basophils % Sodium Potassium Chloride Carbon Dioxide Anion Gap BUN Creatinine BUN/Creatinine Ratio Random Glucose Serum Osmolality Calcium Total Bilirubin AST ALT Alkaline Phosphatase Troponin I B-Natriuretic Peptide Serum Total Protein Albumin Globulin Albumin/Globulin Ratio Group A Strep Rapid Negative - EKG/XRAY/CT EKG: Sinus - NSR, HR 75, no ST elevations or q waves, axis and intervals normal, no prior EKG for comparison XRAY: chest - no acute processes per my read Departure - Departure Clinical Impression: Pharyngitis Qualifiers: Pharyngitis/tonsillitis etiology: unspecified etiology Qualified Code(s): J02.9 - Acute pharyngitis, unspecified GERD (gastroesophageal reflux disease) Qualifiers: Esophagitis presence: esophagitis presence not specified Qualified Code(s): K21.9 - Gastro-esophageal reflux disease without esophagitis Time of Disposition: 10:12 Disposition: Discharge to Home or Self Care Condition: Good Departure Forms: ED Discharge - Pt. Copy, Patient Portal Self Enrollment Instructions: Acid Reflux (Gastroesophageal Reflux Disease), Adult (DC), Sore Throat, Adult (DC) Diet: other - GERD diet Referrals: Wisam Middleton MD [Primary Care Provider] - 1-2 Weeks Home Medications: Ambulatory Orders Atorvastatin Calcium [Lipitor] 20 mg PO DAILY 11/19/14 Metoprolol Succinate [Metoprolol Succinate ER] 25 mg PO DAILY 11/19/14 Montelukast [Singulair] 10 mg PO DAILY 11/19/14 RX: Hydrochlorothiazide 25 mg PO DAILY 11/19/14 RX: Lisinopril 20 mg PO BID 11/19/14 Tamsulosin [Flomax] 0.4 mg PO QD 02/22/18 traMADol 37.5MG/APAP 325MG [Ultracet] 1 - 2 tab PO PRN 02/22/18 Additional Instructions: Follow instruction packets provided. Avoid large meals and foods which may worsen reflux such as spicy foods, acidic foods, fried/fatty foods, soft drinks, alcohol, coffee, etc... Return if symptoms worsen or if you have trouble breathing, chest pain, shortness of breath, hoarse voice, or any other concerning symptoms.
[2019-03-25 08:47] VITALS: TEMP 97.5
--- NOTE | 2019-03-25 09:07 | RAD ---
EXAM: XR Chest, 1 View CLINICAL HISTORY: throat tightness TECHNIQUE: Frontal view of the chest. COMPARISON: 03/22/2019. FINDINGS: Lungs: Unremarkable. No consolidation. Pleural space: Unremarkable. No pneumothorax. Heart: Unremarkable. No cardiomegaly. Mediastinum: There is a moderate hiatal hernia. Bones/joints: Unremarkable. IMPRESSION: No acute findings in the chest. Electronically signed by: Susie Palm MD 03/25/2019 9:06 AM LEASING PROFESSIONAL
[2019-03-25] MEDS: POTASSIUM CHLORIDE 20 MEQ TAB PO ONE (09:19)
[2019-03-25] MEDS ORDERED: LIDOCAINE HCL 2% (MOUTH-THROAT) 15 ML UD ONE (09:25)
[2019-03-25] MEDS ORDERED: ALUM & MAG HYDROX-SIMETHICONE 30 ML UD ONE (09:25)
[2019-03-25] MEDS: ALUM & MAG HYDROX-SIMETHICONE 30 ML, LIDOCAINE VISCOUS 2% 15 ML PO ONE ×2 (09:25)
[2019-03-25 10:03] VITALS: BP 135/79
[2019-03-25 10:21] VITALS: O2SAT 94
== END 2019-03-25 10:20 | disposition home or self-care (01) ==
LOC: ER 08:22
DX: J02.9 Acute pharyngitis, unspecified (principal); K21.9 Gastro-esophageal reflux disease without esophagitis; J45.909 Unspecified asthma, uncomplicated; I50.9 Heart failure, unspecified; I11.0 Hypertensive heart disease with heart failure; Z98.890 Other specified postprocedural states; Z87.891 Personal history of nicotine dependence; Z79.899 Other long term (current) drug therapy; Z88.6 Allergy status to analgesic agent; Z88.5 Allergy status to narcotic agent; Z88.0 Allergy status to penicillin; Z91.018 Allergy to other foods
CPT/HCPCS: 36415; 71045; 80053; 83880; 84484; 85025; 87070; 87880; 93005; 94760; J1100; J1200; J7030

== ENCOUNTER 2019-06-09 07:30 | Day surgery (SDC) | payer MEDICARE ==
[~2019-06-09 07:30] MED LIST: LACTATED RINGERS 1,000 ML ONE
[2019-06-09] MEDS ORDERED: KETAMINE HCL 100 MG/ML VIAL ONE (08:17)
[2019-06-09] MEDS ORDERED: fentaNYL CITRATE INJ 50 MCG/ML 2 ML AMP ONE (08:18)
[2019-06-09] MEDS ORDERED: MIDAZOLAM INJ 2 MG/2 ML VIAL ONE (08:18)
[2019-06-09] MEDS: BUPIVACAINE 0.5% W/EPI 30 ML VIAL INJ ONE (08:49)
[2019-06-09] MEDS ORDERED: HYDROmorphone HCL INJ 2 MG/ML VIAL ONE (09:46)
[2019-06-09] MEDS ORDERED: LIDOCAINE 1% 10 ML VIAL INJ ONE (10:00)
[2019-06-09] MEDS ORDERED: MAGNESIUM SULFATE INJ 1 GM/2 ML VIAL IVPB ONE (10:00)
[2019-06-09] MEDS ORDERED: DEXAMETHASONE INJ 10 MG/ML VIAL IV ONE (10:00)
[2019-06-09] MEDS ORDERED: ONDANSETRON INJ 4 MG/2 ML VIAL IV ONE (10:00)
[2019-06-09] MEDS ORDERED: GLYCOPYRROLATE 0.2 MG/ML VIAL IV ONE (10:00)
[2019-06-09] MEDS ORDERED: ePHEDrine SULF 50 MG/ML IV ONE (10:00)
[2019-06-09] MEDS ORDERED: PROPOFOL 200 MG/20 ML VIAL IV ONE (10:00)
--- NOTE | 2019-06-09 10:48 | OP ---
DATE OF PROCEDURE: 06/09/19 PREOPERATIVE DIAGNOSIS: 1. Painful neuromas times 2, right upper extremity amputation. POSTOPERATIVE DIAGNOSIS: 1. Painful neuromas times 2, right upper extremity amputation. PROCEDURE: 1. Excision of deep intramuscular mass times 2, right upper extremity. SURGEON: Moe Davis MD ANESTHESIA: General and local. FINDINGS: Two tender palpable masses, the proximal one was identified first and was a well-rounded circumscribed lesion. It was tied off from its proximal attachment. The second one was less well-pronounced, but thick, similarly white, neuroma type tissue in the distal amputation. One small artery was encountered and tied off without difficulty. There were no complications. INDICATION: This man presented with a history of neuromas. 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 He now has two tender knots. He is unable to sleep with these and is using more pain medicine. Even with current restrictions from [employer], it is felt necessary to remove this to eliminate his severe pain that is not being helped with pain medicine and muscle relaxers. PROCEDURE: The patient was brought to the Operating Suite in supine position. General anesthesia was induced. He was prepped and draped in sterile fashion. Palpating the two lesions, it seemed like an anterior incision could get us to both of them, so a vertical incision was made. Subcutaneous tissues were taken down. With gentle pressure from the back and palpating the mass, I was able to push it up into the operative field. I dissected tissues around it and then surrounding it, elevated it off the underlying tissues and it was seemingly attached proximally. This was tied with a stick tie of Silk. There was one small artery bleeding at this point and this was tied off with a Silk as well. We then did a similar technique with the distal lesion that was palpable underneath some fatty tissue, fairly deep, but once we got it all with Weitlaner and retractors, we got it up into the operative field and was able to remove it from the surrounding tissue. It shelled out nicely. These were the two lesions. No residual additional tissue was identified. There was good hemostasis. It was irrigated and then closed in two layers of absorbable suture. Dressing was applied. He was awakened and taken to Recovery to be discharged. #[id number] [facility]
[2019-06-09] MEDS ORDERED: HYDROcodone 5MG/APAP 325MG 1 EA TAB ONE (11:22)
[2019-06-09] MEDS: HYDROcodone 5MG/APAP 325MG 1 EA TAB ONE (11:30)
[2019-06-09 13:59] VITALS: BP 138/80; TEMP 98.1; O2SAT 96
== END 2019-06-09 12:30 | disposition home or self-care (01) ==
LOC: AMB 07:30
PROVIDERS: ATTEND Surgery
DX: T87.31 Neuroma of amputation stump, right upper extremity (principal); Z89.211 Acquired absence of right upper limb below elbow; I10 Essential (primary) hypertension; J45.909 Unspecified asthma, uncomplicated; Z79.899 Other long term (current) drug therapy; Z88.6 Allergy status to analgesic agent; Z88.0 Allergy status to penicillin; Z88.5 Allergy status to narcotic agent
CPT/HCPCS: 01710; 24076; 88304; J1100; J1170; J2250; J2405; J3010; J3475; J3490; J7120

== ENCOUNTER 2019-12-28 05:37 | Day surgery (SDC) | payer MEDICARE ==
[2019-12-28] MEDS ORDERED: LACTATED RINGERS 1,000 ML ONE (06:58)
[2019-12-28] MEDS ORDERED: PROPOFOL 200 MG/20 ML VIAL IV ONE (07:00)
[2019-12-28 08:37] VITALS: O2SAT 97
[2019-12-28] MEDS ORDERED: fentaNYL CITRATE INJ 50 MCG/ML 2 ML AMP ONE (09:06)
[2019-12-28 09:30] VITALS: BP 114/61; TEMP 97.3
--- NOTE | 2019-12-28 09:44 | OP ---
DATE OF PROCEDURE: 12/28/19 PREOPERATIVE DIAGNOSIS: 1. History of lymphoma. 2. Abnormal PET scan. POSTOPERATIVE DIAGNOSIS: 1. Normal EGD. PROCEDURE: 1. EGD. SURGEON: Moe Davis MD ANESTHESIA: General. FINDINGS: In the posterior pharynx, initially the cords were seen. Upon advancement, we did get into the trachea. The patient had mild coughing. No evidence of trauma. It was then reversed and then routine EGD. It was normal into the deep duodenum with no evidence of mass or significant inflammation seen. PROCEDURE: General anesthesia was induced in the lateral position. We placed the endoscope through the bite block into the mouth. The cords were not readily identified either with some partially swollen retinoids or swallowing, gagging, but initially we did notice we were in the trachea near the linda. We withdrew. He had a slight amount of coughing and then into the esophagus without difficulty. We passed into the third portion of the duodenum. I wanted to examine deeply due to an abnormal appearance on the PET scan. Upon careful withdrawal, no evidence of masses or mucosal abnormalities were seen. The pylorus was normal. The remainder of the stomach including on retroflexion was normal. There was no evidence of hiatal hernia. It was then withdrawn and the gas suctioned. Upon withdrawal, there was a slight amount of blood in the posterior pharynx, but no evidence of direct trauma. The scope was removed. The patient tolerated the procedure and was taken to Recovery to be discharged. #[id number] MTDD
== END 2019-12-28 09:55 | disposition home or self-care (01) ==
LOC: AMB 05:37
PROVIDERS: ATTEND Surgery
DX: Z85.72 Personal history of non-Hodgkin lymphomas (principal); R93.89 Abnormal findings on diagnostic imaging of other specified body structures; I10 Essential (primary) hypertension; J45.909 Unspecified asthma, uncomplicated; E78.00 Pure hypercholesterolemia, unspecified; N40.0 Benign prostatic hyperplasia without lower urinary tract symptoms; Z88.5 Allergy status to narcotic agent; Z88.0 Allergy status to penicillin; Z79.51 Long term (current) use of inhaled steroids; Z79.899 Other long term (current) drug therapy
CPT/HCPCS: 00731; 43235; J3010; J7120